=== PATIENT | male | born 1945 ===

== ENCOUNTER → 2021-08-01 09:41 | Outpatient (BNVA) | payer MEDICARE, MEDICAID, SELFPAY | PROVIDERS: PCP Internal Medicine; Visit Provider Anesthesiology | DX: E11.42 Type 2 diabetes mellitus with diabetic polyneuropathy (principal); M47.816 Spondylosis without myelopathy or radiculopathy, lumbar region; M51.36 Other intervertebral disc degeneration, lumbar region; M15.9 Polyosteoarthritis, unspecified; G47.31 Primary central sleep apnea; G89.4 Chronic pain syndrome | CPT/HCPCS: 99202 ==

== ENCOUNTER → 2021-09-03 16:31 | Outpatient (BNVA) | payer MEDICARE, MEDICAID, SELFPAY | PROVIDERS: PCP Internal Medicine; Visit Provider Anesthesiology | DX: M47.816 Spondylosis without myelopathy or radiculopathy, lumbar region (principal); M51.36 Other intervertebral disc degeneration, lumbar region; M15.9 Polyosteoarthritis, unspecified; G89.4 Chronic pain syndrome; G47.31 Primary central sleep apnea; E11.42 Type 2 diabetes mellitus with diabetic polyneuropathy | CPT/HCPCS: 99212 ==